=== PATIENT | female | born 1930 | race Caucasian/White ===

== ENCOUNTER 2016-12-03 09:20 | Emergency (ER) | payer MEDICARE, BC ==
[~2016-12-03] VITALS: Ht 154.9 cm; Wt 50.0 kg
[~2016-12-03 09:20] MED LIST: CENTRUM SILVER1 TA1 PO; DIABETA 2.5MG2.5 MG PO; DIABETA 5MG5 MG/TAB PO; FERROUS SU325 MG/TAB PO; FLEXERIL10 MG PO; FOLIC ACID PO; FOSAMAX 70MG TA70 MG PO; GLUCOPHAGE XR500 M1 PO; GLUCOPHAGE1000 MG PO; GLUCOPHAGE500 MG PO; GLYBURIDE MICRON3 MG PO; LOTENSIN 1010 MG/TAB PO; LOTENSIN10 MG PO; NORCO 325 MG-51 TAB PO; PEPCID 20MG TAB20 MG PO; RELAFEN 50500 MG/TAB PO; TUMS 5001250 MG PO; VITAMIN B12 PO; VITAMIN C500 MG PO; ZOFRAN 4MG T4 MG/TAB PO
[2016-12-03 09:23] VITALS: PULSE 90; TEMP 97.7
[2016-12-03 10:01] LABS: PH 6 (5-8); SQUAMOUS EPITHELIAL 0-2 /hpf; URINE APPEARANCE Clear; URINE BACTERIA None Seen /hpf; URINE BILIRUBIN Negative (NEGATIVE); URINE BLOOD Negative (NEGATIVE); URINE COLOR Yellow; URINE GLUCOSE 3+ (NEGATIVE); URINE KETONE Negative (NEGATIVE); URINE RBC 0-2 /hpf; URINE UROBILINOGEN Negative (NEGATIVE); URINE WBC 0-2 /hpf
[2016-12-03] MEDS ORDERED: NORVASC2.5 MG PO (10:52)
[2016-12-03] MEDS ORDERED: NORCO 325 MG-51 TAB PO (10:52)
[2016-12-03 11:23] VITALS: BP 180/85
== END 2016-12-03 11:15 | disposition home or self-care (01) ==
LOC: COL.ER 09:20
PROVIDERS: Emergency Medicine
DX: M25.552 Pain in left hip (principal); M25.551 Pain in right hip; I10 Essential (primary) hypertension